=== PATIENT | male | born 1995 | race African-American/Black ===

== ENCOUNTER 2017-03-01 00:55 | Emergency (ER) | payer MEDICAID ==
[~2017-03-01] VITALS: Ht 170.2 cm; Wt 55.0 kg
[2017-03-01 01:25] VITALS: BP 141/80
== END 2017-03-01 03:05 | disposition left against medical advice (07) ==
LOC: ER 00:55
DX: Z53.21 Procedure and treatment not carried out due to patient leaving prior to being seen by health care provider (principal)
CPT/HCPCS: 93005